=== PATIENT | male | born 1970 | race Two or more races ===

== ENCOUNTER → 2018-03-21 | Emergency (ER) | payer OTHER ==
[~2018-03-21] VITALS: Ht 160 cm; Wt 71.7 kg
[~2018-03-21] MED LIST: ALPRAZOLAM ER0.5 MG; NADOLOL40 MG; TOPROL XL100 M1 PO; ZOLOFT100 MG
== END | disposition home or self-care (01) ==
LOC: ER 16:19
DX: N41.0 Acute prostatitis (principal)